=== PATIENT | female | born 1960 | race Caucasian/White ===

== ENCOUNTER → 2021-05-30 | Outpatient (CLI) | payer MEDICARE, MEDICAID ==
[~2021-05-30] MED LIST: ALEN70TA82 PO; ASPE16CR TOP; ASPI325T57 PO; CALCCAP4 PO; DOCU100C17 PO; FLAG500T PO; FLON1SPR; FLUD0.1T PO; LORA-674 PO; LOXA25CA2 PO; MIDO5TA PO; MIRA3350 PO; NOXI1TAB PO; OMEP40CA4 PO; PERP4TAB30 PO; QC A650T3 PO; TRAZ-186 PO; VITMTA PO; XANA0.5T PO
== END ==
LOC: M LABSMTC 09:19
PROVIDERS: ATTEND Anesthesiology
DX: Z01.818 Encounter for other preprocedural examination (principal); Z11.52 Encounter for screening for COVID-19

== ENCOUNTER 2021-10-14 08:01 | Day surgery (SDC) | payer MEDICARE, MEDICAID ==
[~2021-10-14] VITALS: Ht 167.6 cm; Wt 44.9 kg
[~2021-10-14 08:01] MED LIST changes: +ALEN70TA82; +AMMO12CR7 TOP; +ATIV1TAB10; +FERR325T3 PO; +FLUTISP; +HALO5TAB33 PO; +HYDR-3363; +LORA1TAB4 PO; +MELA5TAB20 PO; +METO1TAB87 PO; +MILKSUS3 PO; +NEOSLIQ EX; +OMEP40CA5; +TRAZ300T2; +VITA-243 PO; +VITA100093 PO; +XANA0.25; +atarax PO
[2021-10-14] MEDS ORDERED: MIDAZOLAM 10MG/5ML SYRUP PO ONE (09:00)
[2021-10-14] MEDS ORDERED: LR 1,000 ML IV SCH ×2 (09:00→10:45)
[2021-10-14] MEDS ORDERED: LIDOCAINE W/EPINEPHRINE 1% 20ML VIAL As Ordered ONE (09:03)
[2021-10-14] MEDS ORDERED: LIDOCAINE 2% 100MG/5ML SDV (FOR ANES.) As Ordered ONE (10:10)
[2021-10-14] MEDS ORDERED: propofoL 200 MG/20 ML VIAL As Ordered ONE (10:10)
[2021-10-14] MEDS ORDERED: ONDANSETRON 4MG 2ML VIAL As Ordered ONE (10:10)
[2021-10-14] MEDS ORDERED: SUGAMMADEX SODIUM 500 MG/5 ML VIAL (BRIDION) As Ordered ONE (10:10)
[2021-10-14] MEDS ORDERED: dexameTHASONE 4 MG/ML 1ML VIAL (J1100 PER 1MG) As Ordered ONE (10:10)
[2021-10-14] MEDS ORDERED: fentaNYL 100 MCG/2 ML INJECTION As Ordered ONE (10:10)
[2021-10-14] MEDS ORDERED: ROCURONIUM BROMIDE 50 MG/5 ML VIAL As Ordered ONE (10:10)
[2021-10-14] MEDS ORDERED: PHENYLephrine 500MCG 5ML (100MCG/ML) SYRINGE As Ordered ONE (10:31)
[2021-10-14] MEDS ORDERED: KETOROLAC 60MG 2ML VIAL As Ordered ONE (10:32)
[2021-10-14] MEDS ORDERED: fentaNYL 100 MCG/2 ML INJECTION IV PRN (10:45)
[2021-10-14] MEDS ORDERED: HYDROMORPHONE HCL 0.5 MG/ 0.5 ML SYRINGE (J1170 PER 1) IV PRN (10:45)
[2021-10-14] MEDS ORDERED: ONDANSETRON 4MG 2ML VIAL IV PRN (10:45)
[2021-10-14] MEDS ORDERED: oxyCODONE 5MG TAB PO PRN (10:45)
[2021-10-14 12:48] VITALS: BP 136/69
== END 2021-10-14 12:55 | disposition home or self-care (01) ==
LOC: M SDC 08:01
PROVIDERS: ATTEND Dentist Oral and Maxillofacial Surgery
DX: K02.9 Dental caries, unspecified (principal); Z88.8 Allergy status to other drugs, medicaments and biological substances
CPT/HCPCS: 41899; 88300; J1100; J1885; J2370; J2405; J3010